=== PATIENT | female | born 1990 | race Caucasian/White ===

== ENCOUNTER 2024-04-25 12:40 | Inpatient (IN) ==
[2024-04-25 12:55] LABS: POC Blood Urea Nitrogen 20 (6-20); POC Calcium, Ionized 1.12 (1.16-1.32); POC Chloride 98 (96-108); POC Creatinine 0.7 (0.6-1.2); POC Glucose, Random > 700 (70-105); POC Potassium 5.1 (3.3-5.1); POC Sodium 128 (133-145)
[2024-04-25] MEDS: 0.9 % SODIUM CHLORIDE 1,000 ML IV ONE ×2 (12:56→13:51)
[2024-04-25] MEDS: INSULIN REGULAR, HUMAN 1 UNIT/0.01 ML UNIT IV ONE (13:04)
[2024-04-25 13:29] LABS: Basophils # (Auto) 0.05 K/mcL (0.00-0.30); Basophils % (Auto) 0.4 % (0.0-2.0); Eosinophils # (Auto) 0.06 K/mcL (0.00-0.70); Eosinophils % (Auto) 0.5 % (0.0-7.0); Hematocrit 38.8 % (34.1-44.9); Hemoglobin 12.6 g/dL (11.2-15.7); Lymphocytes # (Auto) 2.16 K/mcL (1.50-4.80); Lymphocytes % (Auto) 18.1 % (15.5-49.0); Mean Cell Volume 94.4 fL (80.0-100.0); Mean Corpuscular HGB Conc 32.5 g/dL (31.0-36.0); Mean Platelet Volume 9.8 fL (8.8-12.5); Monocytes # (Auto) 0.46 K/mcL (0.10-0.90); Monocytes % (Auto) 3.9 % (1.0-12.0); Neutrophils % (Auto) 76.9 % (38.0-78.0); Platelet Count 377 K/mcL (140-440); RBC 4.11 M/mcL (3.59-5.38); Red Cell Distribution Width 12.9 % (11.5-14.5); WBC 11.9 K/mcL (4.5-11.0)
[2024-04-25 13:57] LABS: Appearance,Urine Clear (Clear); Bilirubin,Urine Negative (Negative); Color,Urine Yellow; Culture Indicated,Urine No; Glucose,Urine (UA) 500 mg/dL (Negative); Ketones,Urine >=160 mg/dL (Negative); Leukocyte Esterase,Urine Negative /uL (Negative); Nitrate,Urine Negative (Negative); Protein,Urine Negative (Negative); Specific Gravity,Urine <= 1.005 (1.000-1.035); Urine Blood Negative ery/mcL (Negative); Urine RBC 0 /hpf (0-3); Urine Squamous Epithelial Cell 0 /hpf (0-4); Urine WBC 0 /hpf (0-4); Urobilinogen,Urine Normal
[2024-04-25] MEDS: INSULIN REGULAR, HUMAN 50 UNIT in 0.9 % SODIUM CHLORIDE 99.5 ML IV SCH (14:16)
[2024-04-25 14:29] LABS: ALT/SGPT 17 U/L (<40); AST/SGOT 22 U/L (<32); Albumin/Globulin Ratio 1.5 (1.0-2.3); Alkaline Phosphatase 177 U/L (39-117); Bilirubin,Total 0.4 mg/dL (0.1-1.0); Blood Urea Nitrogen 20 mg/dL (6-20); Calcium 8.6 mg/dL (8.6-10.4); Carbon Dioxide 14 mmol/L (22-30); Chloride 90 mmol/L (96-108); Globulin 2.7 gm/dL (2.2-3.7); Glomerular Filtration Rate 83; Glucose 848 mg/dL (70-105); Potassium 5.2 mmol/L (3.3-5.1); Sodium 128 mmol/L (133-145)
[2024-04-25 14:42] LABS: Beta Hydroxybutyrate > 6.36 mmol/L (<0.27)
[2024-04-25 15:36] LABS: Phosphorous 3.9 mg/dL (2.5-4.5)
[2024-04-25] MEDS ORDERED: POLYETHYLENE GLYCOL 3350 17 GM PACKET PO PRN (16:46)
[2024-04-25] MEDS ORDERED: POTASSIUM CHLORIDE 20 MEQ TABLET PO PRN ×2 (16:46)
[2024-04-25] MEDS ORDERED: IPRATROPIUM/ALBUTEROL 3 ML AMPUL.NEB NEB PRN (16:46)
[2024-04-25] MEDS ORDERED: POTASSIUM CHLORIDE 40 MEQ in DEXTROSE 5% IN WATER 500 ML IV PRN (16:46)
[2024-04-25] MEDS ORDERED: MAGNESIUM SULFATE 2 GM/50 ML BAG IV PRN (16:46)
[2024-04-25] MEDS ORDERED: SENNOSIDES 1 TABLET PO PRN (16:46)
[2024-04-25] MEDS ORDERED: ACETAMINOPHEN 160 MG/5 ML ORAL.SOL PO PRN (16:46)
[2024-04-25] MEDS: 0.9 % SODIUM CHLORIDE 1,000 ML IV SCH (17:00)
[2024-04-25] MEDS: FLUCONAZOLE 100 MG TABLET PO ONE (17:19)
[2024-04-25 17:56] LABS: Hemoglobin A1C 9.9 % Hgb (4.0-6.0)
[2024-04-25 18:06] LABS: Amphetamine Screen,Urine Suspect positive; Barbiturate Screen,Urine None detected; Benzodiazepines Screen,Urine None detected; Cannabinoid Screen,Urine None detected; Cocaine Screen,Urine None detected; Opiate Screen,Urine None detected; Oxycodone, Urine Screen None detected; Phencyclidine Screen,Urine None detected
[2024-04-25] MEDS: DEXTROSE 5%-NS 1,000 ML IV SCH (20:23)
[2024-04-25] MEDS: DOCUSATE SODIUM 100 MG CAPSULE PO SCH (20:25)
[2024-04-25] MEDS: DEXTROSE 50% 50 ML VIAL IV ONE (23:02)
[2024-04-25] MEDS: DEXTROSE 50% 50 ML SYRINGE IV ONE (23:23)
[2024-04-26] MEDS: DEXTROSE 50% 50 ML VIAL IV ONE (01:01)
[2024-04-26] MEDS: DEXTROSE 50% 50 ML SYRINGE IV ONE (01:29)
[2024-04-26] MEDS: NICOTINE 21 MG PATCH TOPICAL ONE (04:09)
[2024-04-26 06:58] LABS: ALT/SGPT 14 U/L (<40); AST/SGOT 27 U/L (<32); Albumin 3.1 gm/dL (3.2-5.2); Albumin/Globulin Ratio 1.5 (1.0-2.3); Alkaline Phosphatase 95 U/L (39-117); Bilirubin,Direct < 0.2 mg/dL (0-0.3); Bilirubin,Total 0.2 mg/dL (0.1-1.0); Blood Urea Nitrogen 10 mg/dL (6-20); Calcium 7.7 mg/dL (8.6-10.4); Carbon Dioxide 18 mmol/L (22-30); Chloride 109 mmol/L (96-108); Globulin 2.1 gm/dL (2.2-3.7); Glomerular Filtration Rate 126; Glucose 127 mg/dL (70-105); Lactate Dehydrogenase 141 U/L (135-225); Phosphorous 2.5 mg/dL (2.5-4.5); Potassium 3.7 mmol/L (3.3-5.1); Sodium 138 mmol/L (133-145); Triglycerides 61 mg/dL (<150); Uric Acid 2.9 mg/dL (2.5-8.0)
[2024-04-26] MEDS: INSULIN GLARGINE, HUMAN 1 UNIT/0.01 ML SQ SCH (08:15)
[2024-04-26] MEDS: ENOXAPARIN 40 MG/0.4 ML SYRINGE SQ SCH (08:16)
[2024-04-26 09:49] LABS: Beta Hydroxybutyrate 0.71 mmol/L (<0.27)
[2024-04-26] MEDS: NICOTINE 21 MG PATCH TOPICAL SCH (10:35)
[2024-04-26] MEDS ORDERED: DEXTROSE 50% 50 ML VIAL IV PRN (10:40)
[2024-04-26] MEDS ORDERED: DEXTROSE 31 GM ORAL.SUSP PO PRN (10:40)
[2024-04-26] MEDS: INSULIN LISPRO 1 UNIT/0.01 ML UNIT SQ SCH (12:01)
[2024-04-26] MEDS ORDERED: NICOTINE POLACRILEX 2 MG GUM CHEW/PARK SCH (15:00)
[2024-04-26] MEDS ORDERED: NICOTINE 21 MG PATCH TOPICAL SCH (17:35)
[2024-05-01 04:10] LABS: Amphetamine Screen Negative (Cutoff=500)
== END 2024-04-26 15:00 | disposition left against medical advice (07) | DRG 638 ==
LOC: ED 12:40 → ICU 16:35
PROVIDERS: ADMIT Internal Medicine; ATTEND Internal Medicine

== ENCOUNTER 2024-06-18 21:50 | Inpatient (IN) ==
[2024-06-18 23:10] LABS: Basophils # (Auto) 0.08 K/mcL (0.00-0.30); Basophils % (Auto) 0.6 % (0.0-2.0); Eosinophils # (Auto) 0.05 K/mcL (0.00-0.70); Eosinophils % (Auto) 0.4 % (0.0-7.0); Hematocrit 47.6 % (34.1-44.9); Hemoglobin 15.2 g/dL (11.2-15.7); Lymphocytes # (Auto) 4.02 K/mcL (1.50-4.80); Lymphocytes % (Auto) 29.2 % (15.5-49.0); Mean Cell Volume 93.7 fL (80.0-100.0); Mean Corpuscular HGB Conc 31.9 g/dL (31.0-36.0); Monocytes % (Auto) 3.6 % (1.0-12.0); Neutrophils % (Auto) 66.1 % (38.0-78.0); Platelet Count 381 K/mcL (140-440); RBC 5.08 M/mcL (3.59-5.38); Red Cell Distribution Width 12.3 % (11.5-14.5); WBC 13.8 K/mcL (4.5-11.0)
[2024-06-18] MEDS: ONDANSETRON 4 MG/2 ML VIAL IV ONE (23:37)
[2024-06-18 23:57] LABS: Beta Hydroxybutyrate 8.47 mmol/L (<0.27)
[2024-06-18 23:59] LABS: ALT/SGPT 8 U/L (<40); AST/SGOT 16 U/L (<32); Albumin 4.5 gm/dL (3.2-5.2); Albumin/Globulin Ratio 1.1 (1.0-2.3); Alkaline Phosphatase 164 U/L (39-117); Bilirubin,Total 0.5 mg/dL (0.1-1.0); Blood Urea Nitrogen 19 mg/dL (6-20); Calcium 9.3 mg/dL (8.6-10.4); Carbon Dioxide 11 mmol/L (22-30); Chloride 90 mmol/L (96-108); Glomerular Filtration Rate 96; Glucose 498 mg/dL (70-105); Sodium 131 mmol/L (133-145)
[2024-06-19] MEDS: LACTATED RINGERS 1,000 ML IV ONE (00:54)
[2024-06-19] MEDS: INSULIN REGULAR, HUMAN 1 UNIT/0.01 ML UNIT IV ONE ×2 (00:54→08:17)
[2024-06-19 01:02] LABS: Appearance,Urine Clear (Clear); Bacteria,Urine 0 /hpf (0); Bilirubin,Urine Negative (Negative); Color,Urine Yellow; Glucose,Urine (UA) 500 mg/dL (Negative); Ketones,Urine >=160 mg/dL (Negative); Leukocyte Esterase,Urine Negative /uL (Negative); Nitrate,Urine Negative (Negative); PH,Urine 5.5 (5.0-9.0); Protein,Urine Negative (Negative); Specific Gravity,Urine 1.025 (1.000-1.035); Urine Blood Negative ery/mcL (Negative); Urine Budding Yeast Few /hpf; Urine RBC 0 /hpf (0-3); Urine Squamous Epithelial Cell 7 /hpf (0-4); Urine WBC 4 /hpf (0-4); Urobilinogen,Urine Normal
[2024-06-19] MEDS ORDERED: INSULIN REGULAR, HUMAN 50 UNIT in 0.9 % SODIUM CHLORIDE 99.5 ML IV SCH (01:45)
[2024-06-19] MEDS ORDERED: ONDANSETRON 4 MG/2 ML VIAL IV PRN ×2 (01:58→07:54)
[2024-06-19] MEDS: 0.9 % SODIUM CHLORIDE 1,000 ML IV SCH (02:19)
[2024-06-19] MEDS: INSULIN REGULAR, HUMAN 50 UNIT in 0.9 % SODIUM CHLORIDE 99.5 ML IV SCH (02:19)
[2024-06-19 02:53] LABS: ALT/SGPT 7 U/L (<40); AST/SGOT 12 U/L (<32); Albumin 3.9 gm/dL (3.2-5.2); Albumin/Globulin Ratio 1.2 (1.0-2.3); Alkaline Phosphatase 141 U/L (39-117); Bilirubin,Direct < 0.2 mg/dL (0-0.3); Bilirubin,Total 0.3 mg/dL (0.1-1.0); Blood Urea Nitrogen 20 mg/dL (6-20); Calcium 8.8 mg/dL (8.6-10.4); Carbon Dioxide 10 mmol/L (22-30); Chloride 94 mmol/L (96-108); Globulin 3.3 gm/dL (2.2-3.7); Glomerular Filtration Rate 96; Glucose 350 mg/dL (70-105); Lactate Dehydrogenase 119 U/L (135-225); Phosphorous 3.9 mg/dL (2.5-4.5); Potassium 4.7 mmol/L (3.3-5.1); Sodium 132 mmol/L (133-145); Triglycerides 127 mg/dL (<150)
[2024-06-19] MEDS ORDERED: NICOTINE POLACRILEX 2 MG GUM CHEW/PARK PRN (07:53)
[2024-06-19] MEDS ORDERED: LACTULOSE 20 GM/30 ML ORAL.SOL PO PRN (07:54)
[2024-06-19] MEDS ORDERED: SENNOSIDES 1 TABLET PO PRN (07:54)
[2024-06-19] MEDS: FLUCONAZOLE 100 MG TABLET PO ONE (08:16)
[2024-06-19] MEDS: ENOXAPARIN 40 MG/0.4 ML SYRINGE SQ SCH (09:01)
[2024-06-19] MEDS: DOCUSATE SODIUM 100 MG CAPSULE PO SCH (09:01)
[2024-06-19] MEDS: NICOTINE 21 MG PATCH TOPICAL SCH (10:02)
[2024-06-19] MEDS: DEXTROSE 5%-1/2NS W/20MEQ KCL 1,000 ML IV SCH (11:03)
[2024-06-19 12:47] LABS: ALT/SGPT 6 U/L (<40); AST/SGOT 11 U/L (<32); Albumin 3.5 gm/dL (3.2-5.2); Albumin/Globulin Ratio 1.4 (1.0-2.3); Alkaline Phosphatase 118 U/L (39-117); Bilirubin,Direct < 0.2 mg/dL (0-0.3); Bilirubin,Total < 0.2 mg/dL (0.1-1.0); Blood Urea Nitrogen 15 mg/dL (6-20); Calcium 8.5 mg/dL (8.6-10.4); Carbon Dioxide 21 mmol/L (22-30); Chloride 102 mmol/L (96-108); Globulin 2.5 gm/dL (2.2-3.7); Glomerular Filtration Rate 118; Glucose 227 mg/dL (70-105); Lactate Dehydrogenase 89 U/L (135-225); Phosphorous 3.4 mg/dL (2.5-4.5); Potassium 4.3 mmol/L (3.3-5.1); Sodium 134 mmol/L (133-145); Triglycerides 167 mg/dL (<150); Uric Acid 3.7 mg/dL (2.5-8.0)
[2024-06-19] MEDS: 0.9 % SODIUM CHLORIDE 10 ML SYRINGE IV SCH (14:55)
[2024-06-19] MEDS ORDERED: INSULIN ASPART U SUB-Q SCH (15:00)
[2024-06-19] MEDS ORDERED: DEXTROSE 50% 50 ML VIAL IV PRN (15:01)
[2024-06-19] MEDS ORDERED: DEXTROSE 31 GM ORAL.SUSP PO PRN (15:01)
[2024-06-19] MEDS: INSULIN LISPRO 1 UNIT/0.01 ML UNIT SQ SCH ×2 (16:48)
[2024-06-19] MEDS: INSULIN GLARGINE, HUMAN 1 UNIT/0.01 ML SQ SCH (20:37)
[2024-06-20 06:42] LABS: Basophils # (Auto) 0.04 K/mcL (0.00-0.30); Basophils % (Auto) 0.4 % (0.0-2.0); Eosinophils # (Auto) 0.15 K/mcL (0.00-0.70); Eosinophils % (Auto) 1.5 % (0.0-7.0); Hematocrit 36.7 % (34.1-44.9); Mean Cell Volume 92.4 fL (80.0-100.0); Mean Corpuscular HGB Conc 32.7 g/dL (31.0-36.0); Mean Platelet Volume 9.8 fL (8.8-12.5); Monocytes # (Auto) 0.55 K/mcL (0.10-0.90); Monocytes % (Auto) 5.5 % (1.0-12.0); Neutrophils % (Auto) 47.5 % (38.0-78.0); Platelet Count 317 K/mcL (140-440); RBC 3.97 M/mcL (3.59-5.38); Red Cell Distribution Width 12.6 % (11.5-14.5)
[2024-06-20 07:01] LABS: Blood Urea Nitrogen 12 mg/dL (6-20); Calcium 8.1 mg/dL (8.6-10.4); Carbon Dioxide 20 mmol/L (22-30); Chloride 103 mmol/L (96-108); Glomerular Filtration Rate 126; Glucose 170 mg/dL (70-105); Potassium 3.9 mmol/L (3.3-5.1); Sodium 135 mmol/L (133-145)
[2024-06-20] MEDS: FLUCONAZOLE 100 MG TABLET PO ONE (09:02)
== END 2024-06-20 12:55 | disposition home or self-care (01) | DRG 638 ==
LOC: ED 21:50 → ICU 06-19 02:31
PROVIDERS: ADMIT Internal Medicine; ATTEND Internal Medicine